=== PATIENT | male | born 2000 | race Caucasian/White ===

== ENCOUNTER 2021-08-09 15:57 | Emergency (ER) | payer OTHER | END 2021-08-09 18:47 | disposition home or self-care (01) | LOC: FER 15:57 | DX: R55 Syncope and collapse (principal); F17.210 Nicotine dependence, cigarettes, uncomplicated; Z91.013 Allergy to seafood; Z28.310 Unvaccinated for COVID-19 | CPT/HCPCS: 99283 ==